=== PATIENT | female | born 1960 | race Native Hawaiian/Other Pacific Islander ===

== ENCOUNTER 2021-05-13 00:41 | Emergency (ER) | payer OTHER, BC ==
[~2021-05-13] VITALS: Ht 157.5 cm; Wt 70.3 kg
[2021-05-13 01:14] LABS: PLATELET COUNT 305 K/uL (152-353)
[2021-05-13 01:34] LABS: POTASSIUM 3.6 mmol/L (3.6-5.2)
[2021-05-13 03:20] VITALS: BP 131/70; TEMP 98.1
== END 2021-05-13 03:30 | disposition home or self-care (01) ==
LOC: ED 00:41
PROVIDERS: Emergency Medicine Emergency Medical Services
DX: R10.84 Generalized abdominal pain (principal)
CPT/HCPCS: 36415; 80053; 80307; 81000; 82150; 83690; 83735; 85027; 96360; 96375; 96376; 99284; J2405; J3490; Q9963

== ENCOUNTER 2021-06-05 08:44 | Outpatient (CLI) | payer OTHER, BC | END 2021-06-05 18:54 | disposition home or self-care (01) | LOC: LAB 08:44 | PROVIDERS: ATTEND Family Medicine | DX: Z20.822 Contact with and (suspected) exposure to COVID-19 (principal); R51.9 Headache, unspecified; R42 Dizziness and giddiness; R19.7 Diarrhea, unspecified | CPT/HCPCS: 87635; G2023; U0003 ==

== ENCOUNTER 2021-06-08 08:14 | Emergency (ER) | payer OTHER, BC ==
[~2021-06-08] VITALS: Ht 157.5 cm; Wt 70.3 kg
[2021-06-08 08:15] VITALS: TEMP 99
[2021-06-08 10:57] LABS: PLATELET COUNT 247 K/uL (152-353)
[2021-06-08 11:06] LABS: POTASSIUM 3.4 mmol/L (3.6-5.2)
[2021-06-08 15:40] VITALS: BP 128/56
== END 2021-06-08 15:49 | disposition home or self-care (01) ==
LOC: ED 08:14
PROVIDERS: Emergency Medicine Emergency Medical Services
DX: R11.2 Nausea with vomiting, unspecified (principal); G47.09 Other insomnia
CPT/HCPCS: 36415; 80053; 81000; 82533; 83690; 84443; 85027; 96360; 96375; 99284; J2060; J3490

== ENCOUNTER 2021-09-24 15:35 | Observation (INO) | payer OTHER, BC ==
[~2021-09-24] VITALS: Ht 157.5 cm; Wt 68.0 kg
[2021-09-24 15:44] VITALS: BP 133/75; TEMP 97.6
[2021-09-24 16:12] LABS: PLATELET COUNT 263 K/uL (152-353)
[2021-09-24 16:20] LABS: POTASSIUM 3.3 mmol/L (3.6-5.2)
[2021-09-24 20:01] VITALS: BP 135/71; TEMP 97.8
[2021-09-24 20:10] VITALS: BP 135/71; TEMP 97.8; Ht 157.5 cm; Wt 68.0 kg
[2021-09-24 23:53] VITALS: BP 119/83; TEMP 97.5
[2021-09-25 04:19] VITALS: BP 96/60; TEMP 97.8
[2021-09-25 08:00] VITALS: BP 115/73; TEMP 97.3
[2021-09-25] MEDS ORDERED: LINZESS290 MCG PO (11:39)
[2021-09-25] MEDS ORDERED: LACTULOSE10 GM/151 PO (11:43)
[2021-09-25] MEDS ORDERED: MIRALAX17 GM PO (11:46)
[2021-09-25] MEDS ORDERED: PRAVASTATIN PO (11:46)
[2021-09-25] MEDS ORDERED: QUETIAPINE200 MG PO (11:47)
[2021-09-25] MEDS ORDERED: TEMA30CA18 PO (11:48)
[2021-09-25] MEDS ORDERED: LYRICA150 MG PO (11:49)
[2021-09-25] MEDS ORDERED: PRAMIPEXOLE1 MG PO (11:50)
[2021-09-25] MEDS ORDERED: [UNRECOGNIZED DRUG - OTHER] (11:51)
[2021-09-25] MEDS ORDERED: DOCU100C10 PO (11:52)
[2021-09-25] MEDS ORDERED: BUDE1AER5 INH (11:53)
[2021-09-25 12:00] VITALS: BP 141/82; TEMP 98.1
== END 2021-09-25 14:34 | disposition home or self-care (01) ==
LOC: ED 15:35 → MED/SURG 17:30
PROVIDERS: Hospitalist; ADMIT Family Medicine; ATTEND Family Medicine
DX: R07.89 Other chest pain (principal); R51.9 Headache, unspecified; M54.2 Cervicalgia; R42 Dizziness and giddiness; E78.49 Other hyperlipidemia; K21.9 Gastro-esophageal reflux disease without esophagitis; F31.89 Other bipolar disorder; R01.1 Cardiac murmur, unspecified; R06.02 Shortness of breath; I10 Essential (primary) hypertension
CPT/HCPCS: 36415; 80053; 82550; 83880; 84484; 85027; 85610; 85730; 87635; 93005; 96372; 96374; 96375; 96376; 99220; 99284; G0378; J1650; J2270; J2405; U0003

== ENCOUNTER 2021-10-08 09:29 | Outpatient (CLI) | payer OTHER, BC ==
[~2021-10-08 09:29] MED LIST: BUDE1AER5 INH; DOCU100C10 PO; LACTULOSE10 GM/151 PO; LINZESS290 MCG PO; LYRICA150 MG PO; MIRALAX17 GM PO; PRAMIPEXOLE1 MG PO; PRAVASTATIN PO; QUETIAPINE200 MG PO; TEMA30CA18 PO; [UNRECOGNIZED DRUG - OTHER]
== END 2021-10-08 19:11 | disposition home or self-care (01) ==
LOC: RAD 09:29
PROVIDERS: ATTEND Nurse Practitioner Family
DX: M79.671 Pain in right foot (principal); M79.672 Pain in left foot

== ENCOUNTER 2021-12-04 09:49 | Outpatient (CLI) | payer OTHER, BC | END 2021-12-04 19:04 | disposition home or self-care (01) | LOC: RESP 09:49 | PROVIDERS: ATTEND Internal Medicine Cardiovascular Disease | DX: I10 Essential (primary) hypertension (principal); I20.0 Unstable angina ==

== ENCOUNTER 2021-12-11 07:49 | Outpatient (CLI) | payer OTHER, BC ==
[~2021-12-11] VITALS: Ht 157.5 cm; Wt 68.0 kg
== END 2021-12-11 19:38 | disposition home or self-care (01) ==
LOC: NM 07:49
PROVIDERS: ATTEND Internal Medicine Cardiovascular Disease
DX: I20.0 Unstable angina (principal); I10 Essential (primary) hypertension
CPT/HCPCS: A9500; J2785

== ENCOUNTER 2022-01-02 13:45 | Outpatient (CLI) | payer OTHER, BC | END 2022-01-02 19:11 | disposition home or self-care (01) | LOC: CT 13:45 | PROVIDERS: ATTEND Pain Medicine Interventional Pain Medicine | DX: M54.12 Radiculopathy, cervical region (principal) ==

== ENCOUNTER 2022-02-20 10:33 | Emergency (ER) | payer OTHER, BC ==
[~2022-02-20] VITALS: Ht 157.5 cm; Wt 68.0 kg
[2022-02-20 11:38] VITALS: BP 142/82; TEMP 97.9
== END 2022-02-20 12:26 | disposition home or self-care (01) ==
LOC: ED 10:33
DX: Z53.21 Procedure and treatment not carried out due to patient leaving prior to being seen by health care provider (principal); M54.2 Cervicalgia; W19.XXXA Unspecified fall, initial encounter; Y92.098 Other place in other non-institutional residence as the place of occurrence of the external cause

== ENCOUNTER 2022-02-23 19:53 | Emergency (ER) | payer OTHER, BC ==
[~2022-02-23] VITALS: Ht 157.5 cm; Wt 72.6 kg
[2022-02-23 20:00] VITALS: BP 147/74; TEMP 98
== END 2022-02-23 22:05 | disposition home or self-care (01) ==
LOC: ED 19:53
DX: S16.1XXA Strain of muscle, fascia and tendon at neck level, initial encounter (principal); S29.012A Strain of muscle and tendon of back wall of thorax, initial encounter; M25.552 Pain in left hip; M25.551 Pain in right hip; G89.4 Chronic pain syndrome; W18.39XA Other fall on same level, initial encounter; Y93.01 Activity, walking, marching and hiking; Y92.512 Supermarket, store or market as the place of occurrence of the external cause
CPT/HCPCS: 99283; J2270; J2550

== ENCOUNTER 2022-06-01 13:16 | Emergency (ER) | payer OTHER, BC ==
[~2022-06-01] VITALS: Ht 157.5 cm; Wt 73.9 kg
[2022-06-01 14:10] LABS: PLATELET COUNT 261 K/uL (152-353)
[2022-06-01 14:15] LABS: POTASSIUM 3.6 mmol/L (3.6-5.2)
[2022-06-01 14:52] LABS: PARTIAL THROMBOPLASTIN TIME 21.3 SECONDS (24.5-33.6)
[2022-06-01 19:09] VITALS: BP 127/71; TEMP 97
== END 2022-06-01 19:15 | disposition short-term general hospital (02) ==
LOC: ED 13:16
PROVIDERS: Emergency Medicine Emergency Medical Services
DX: R07.89 Other chest pain (principal); G89.4 Chronic pain syndrome
CPT/HCPCS: 36415; 36600; 80053; 80307; 81002; 82805; 83735; 84484; 85027; 85379; 85610; 85730; 87040; 93005; 94664; 96360; 96361; 96365; 96375; 99284; J0696; J1650; J2930; J3490

== ENCOUNTER 2022-06-23 15:02 | Emergency (ER) | payer OTHER, BC ==
[~2022-06-23] VITALS: Ht 157.5 cm; Wt 72.6 kg
[2022-06-23 16:14] LABS: POTASSIUM 3.5 mmol/L (3.6-5.2)
[2022-06-23 16:26] LABS: PLATELET COUNT 253 K/uL (152-353)
[2022-06-23 19:30] VITALS: BP 110/75; TEMP 98.1
== END 2022-06-23 19:30 | disposition home or self-care (01) ==
LOC: ED 15:02
PROVIDERS: Emergency Medicine
DX: K59.09 Other constipation (principal)
CPT/HCPCS: 36415; 80048; 85027; 96360; 99284

== ENCOUNTER → 2022-08-05 | Outpatient (CLI) | payer OTHER, BC | LOC: CT 07:51 | PROVIDERS: ATTEND Physician Assistant Surgical | DX: C88.4 Extranodal marginal zone B-cell lymphoma of mucosa-associated lymphoid tissue [MALT-lymphoma] (principal) | CPT/HCPCS: 36415; 82565; 84520; Q9963 ==

== ENCOUNTER → 2022-08-13 | Outpatient (CLI) | payer OTHER, BC | LOC: RAD 08:00 | PROVIDERS: ATTEND Internal Medicine | DX: R05.9 Cough, unspecified (principal) ==

== ENCOUNTER 2022-08-19 08:19 | Outpatient (CLI) | payer OTHER, BC ==
[2022-08-19 08:54] LABS: PLATELET COUNT 297 K/uL (152-353)
[2022-08-19 09:19] LABS: POTASSIUM 3.8 mmol/L (3.6-5.2)
== END 2022-08-19 17:00 | disposition home or self-care (01) ==
LOC: LABW 08:19
PROVIDERS: ATTEND Internal Medicine Hematology & Oncology
DX: C88.4 Extranodal marginal zone B-cell lymphoma of mucosa-associated lymphoid tissue [MALT-lymphoma] (principal); F17.210 Nicotine dependence, cigarettes, uncomplicated; R01.1 Cardiac murmur, unspecified
CPT/HCPCS: 36415; 80053; 82784; 83615; 83883; 84165; 85027; 86147; 86334

== ENCOUNTER 2022-09-17 08:07 | Outpatient (CLI) | payer OTHER, BC | END 2022-09-17 19:03 | disposition home or self-care (01) | LOC: RAD 08:07 | PROVIDERS: ATTEND Internal Medicine | DX: M79.672 Pain in left foot (principal) ==

== ENCOUNTER 2022-10-16 09:43 | Emergency (ER) | payer OTHER, BC ==
[~2022-10-16] VITALS: Ht 157.5 cm; Wt 77.1 kg
[2022-10-16 09:46] VITALS: BP 186/89; TEMP 98.7
== END 2022-10-16 12:08 | disposition home or self-care (01) ==
LOC: ED 09:43
DX: R51.9 Headache, unspecified (principal); H60.93 Unspecified otitis externa, bilateral
CPT/HCPCS: 96372; 99283; J1100

== ENCOUNTER 2022-11-23 08:48 | Outpatient (CLI) | payer OTHER, BC ==
[2022-11-23 09:11] LABS: PLATELET COUNT 264 K/uL (152-353)
[2022-11-23 09:26] LABS: POTASSIUM 4.3 mmol/L (3.6-5.2)
== END 2022-11-23 20:46 | disposition home or self-care (01) ==
LOC: LABW 08:48 → CT 09:00 → LABW 20:46
PROVIDERS: ATTEND Internal Medicine Hematology & Oncology
DX: C88.4 Extranodal marginal zone B-cell lymphoma of mucosa-associated lymphoid tissue [MALT-lymphoma] (principal); F17.210 Nicotine dependence, cigarettes, uncomplicated; R01.1 Cardiac murmur, unspecified
CPT/HCPCS: 36415; 80053; 83615; 85027; Q9963

== ENCOUNTER 2023-01-06 23:17 | Emergency (ER) | payer OTHER, BC ==
[~2023-01-06] VITALS: Ht 157.5 cm; Wt 72.6 kg
[2023-01-06 23:25] VITALS: BP 168/87; TEMP 98.1
== END 2023-01-07 00:45 | disposition left against medical advice (07) ==
LOC: ED 23:17
DX: R51.9 Headache, unspecified (principal); Z53.29 Procedure and treatment not carried out because of patient's decision for other reasons
CPT/HCPCS: 96372; 99282; J2060